=== PATIENT | male | born 2000 | race Caucasian/White ===

== ENCOUNTER 2021-10-02 14:04 | Emergency (ER) | payer BC ==
[~2021-10-02] VITALS: Ht 185.4 cm; Wt 71.8 kg
[2021-10-02 15:00] VITALS: BP 122/77; PULSE 68; TEMP 98.3
== END 2021-10-02 15:00 | disposition home or self-care (01) ==
LOC: COL.ER 14:04
DX: S61.012A Laceration without foreign body of left thumb without damage to nail, initial encounter (principal); W26.0XXA Contact with knife, initial encounter